=== PATIENT | female | born 1995 | race Caucasian/White ===

== ENCOUNTER 2024-09-27 22:50 | Emergency (ER) | payer SELFPAY ==
[2024-09-27 23:19] VITALS: BP 122/74; PULSE 87; RESP 18; TEMP 37.1; O2SAT 99; BMI 35.5
[2024-09-28 00:07] LABS: Influenza A - CEPHEID Flu A NEGATIVE (NEGATIVE); Influenza B - CEPHEID Flu B NEGATIVE (NEGATIVE); Respiratory Syncytial Virus Negative (Negative)
[2024-09-28 00:12] LABS: COVID-19 CEPHEID 4-PLEX PCR Negative (Negative)
[2024-09-28 00:44] VITALS: BP 114/68; PULSE 75; O2SAT 99
--- NOTE | 2024-09-28 00:49 | PC.NURSE ---
Pt states that the most diarrhea he has had is 4 times in one hour.
[2024-09-28 01:00] VITALS: BP 114/72; PULSE 71; O2SAT 99
--- NOTE | 2024-09-28 01:18 | ED_ITS ---
HPI - Nausea/Vomiting/Diarrhea General Chief complaint: Nausea/Vomiting/Diarrhea Stated complaint: 6wks Preg, Vomiting, Diarrhea Time Seen by Provider: 09/28/24 00:48 Source: patient Mode of arrival: Ambulatory History of Present Illness HPI Narrative: 29yoF at 6wks gestational age presents with 4 days of nausea, vomiting, watery diarrhea. States she is followed by OBGYN and has already esablished an IUP. She states she is here to have her stool checked for harmful bacteria that can be causing her symptoms. Reports belching after eating and upper abdominal pain that she describes as gassy Related Data Allergies Allergy/AdvReac Type Severity Reaction Status Date / Time No Known Drug Allergies Allergy Verified 09/27/24 23:19 Patient History Social History Smoking Status: Never smoker Smoking Status: Never smoker Exam Initial Vital Signs Initial Vital Signs: Vital Signs Temperature 98.7 F 09/27/24 23:19 Pulse Rate 87 09/27/24 23:19 Respiratory Rate 18 09/27/24 23:19 Blood Pressure 122/74 09/27/24 23:19 Pulse Oximetry 99 09/27/24 23:19 Oxygen Delivery Method Room Air 09/27/24 23:19 Const: Awake, alert, no acute distress, nontoxic appearing Cardiac: regular rate, regular rhythm RESP: unlabored, conversational without dyspnea GI: Soft, nontender, nondistended, no rebound, no guarding Skin: Warm, Dry, intact, no rashes Neuro: AO x3, CN II-XII grossly intact, moves all extremities Course Orders Ordered: ED Orders 09/27/24 23:25 Covid-19 + FLU A/B + RSV - PCR Stat Discontinued Medications Sodium Chloride (Normal Saline 0.9%) 1,000 mls @ 1,000 mls/hr IV BOLUS ONE Stop: 09/28/24 02:12 Last Admin: 09/28/24 01:29 Dose: Not Given Documented By: Ondansetron HCl (Ondansetron 4 Mg/2 Ml Inj) 4 mg IV NOW PRN PRN Reason: Nausea And Vomiting Ondansetron HCl (Ondansetron 4 Mg Odt) 4 mg SL NOW PRN PRN Reason: Nausea And Vomiting Last Admin: 02/01/25 01:20 Dose: 4 mg Documented By: Ondansetron HCl (Ondansetron 4 Mg/2 Ml Inj) 4 mg IV NOW ONE Stop: 09/28/24 01:14 Last Admin: 09/28/24 01:28 Dose: Not Given Documented By: Vital Signs Vital signs: Vital Signs - 8 hr 09/27/24 23:19 09/28/24 00:44 09/28/24 00:44 Temperature 98.7 F Pulse Rate 87 75 Respiratory Rate 18 Blood Pressure 122/74 114/68 Pulse Oximetry 99 99 Oxygen Delivery Method Room Air Room Air 09/28/24 01:00 09/28/24 01:00 Temperature Pulse Rate 71 Respiratory Rate Blood Pressure 114/72 Pulse Oximetry 99 Oxygen Delivery Method Room Air MDM - Nausea/Vomiting/Diarrhea Differential Diagnosis Differential diagnosis: Likely traveler's diarrhea, food poisoning and gastroenteritis Lab Data Labs: Lab Results 09/27/24 Range/Units 23:25 SARS-CoV-2 (PCR) Negative (Negative) Influenza A (RT-PCR) Flu a negative (NEGATIVE) Influenza B (RT-PCR) Flu b negative (NEGATIVE) RSV (PCR) Negative (Negative) Urine Dip Bedside Urine Glucose Negative Bedside Urine Bilirubin - Negative Bedside Urine Ketone - Negative Urine Specific [place] 1.015 Bedside Urine Occult Blood - Negative Bedside Urine pH 7.0 Bedside Urine Protein - Negative Bedside Urine Urobilinogen - Negative Bedside Urine Nitrite - Negative Bedside Urine Leukocytes - Negative Esterase MDM Narrative Medical decision making narrative: 4 days of symptoms. Requesting that we test her stool for harmful bacteria. Patient denies recent contaminated water exposure, new or strange food exposure. Patient has soft, benign abdominal exam. Nonbloody diarrhea. Patient advised that majority of patient's symptoms are caused by viral pathogens. In addition, there is a norovirus outbreak in [place], where the patient resides. Norovirus would be treated conservatively with symptom control and increasing fluids. Patient states that she already has Zofran at her pharmacy and she does not need a refill. Discharge Plan Departure Patient Disposition: Home Clinical Impression: Gastroenteritis Instructions: DI for Vomiting -- Adult Activity Restrictions/Additional Instructions: Your stool sample is pending. Use the nausea medications as prescribed. You may also use [id number] medications such as simethicone for gas pains. Stand Alone Forms: Patient Portal/API/Survey
[2024-09-28] MEDS: ONDANSETRON 4 MG ODT SL (01:20)
== END 2024-09-28 01:30 | disposition home or self-care (01) ==
PROVIDERS: Emergency Provider Emergency Medicine
DX: O26.891 Other specified pregnancy related conditions, first trimester (principal); K52.9 Noninfective gastroenteritis and colitis, unspecified; Z3A.01 Less than 8 weeks gestation of pregnancy
CPT/HCPCS: 0241U; 81003; 99283

== ENCOUNTER 2024-10-12 16:35 | Emergency (ER) | payer OTHER, SELFPAY ==
[2024-10-12 16:37] VITALS: BP 141/77; PULSE 71; RESP 14; TEMP 36.7; O2SAT 99; BMI 35.1
[2024-10-12 16:57] LABS: Add Manual Diff / Slide Review NO; Basophils Absolute Auto 100 /uL (0-100); Basophils Percent Auto 0.4 % (0-2); Eosinophils Absolute Auto 200 /uL (0-450); Eosinophils Percent Auto 1.8 % (2-4); Hematocrit 40.3 % (36-46); Hemoglobin 13.6 g/dL (12.0-16.0); Lymphocytes Absolute Auto 1600 /uL (1100-4500); Lymphocytes Percent Auto 13.6 % (25-40); Mean Corpuscular HGB Conc 33.8 % (30-36); Mean Corpuscular Hemoglobin 28.8 PG (26-34); Mean Corpuscular Volume 85.1 fL (80-100); Monocytes Absolute Auto 800 /uL (0-900); Monocytes Percent Auto 6.6 % (3-14); Neutrophils Absolute Auto 9000 /uL (1500-7000); Neutrophils Percent Auto 77.6 % (50-75); Platelet Count 307 X10^3/uL (150-400); Red Blood Cell Count 4.73 X10^6/uL (4.0-5.2); Red Cell Distribution Width 13.5 % (11.6-14.8); White Blood Cell Count 11.7 X10^3/uL (4.5-11.0)
--- NOTE | 2024-10-12 16:58 | ED_ITS ---
HPI - Abdominal Pain General Chief Complaint: Abdominal Pain Stated Complaint: yellow nasal discharge, px upper rt quad pt Time Seen by Provider: 10/12/24 16:48 Source: patient Mode of arrival: Ambulatory History of Present Illness HPI narrative: Patient is a 29-year-old female 3 presenting to day with right upper quadrant pain. She is currently about 8 weeks .today with right upper quadrant pain. Reports that she woke up this morning feeling pain underneath her ribs. She also has a yellow productive cough having some nasal congestion. No significant fever. She has nausea but has been nauseated with . She denies any sort of vaginal bleeding she was followed by [facility]. Denies any back pain or fever Related Data Allergies Allergy/AdvReac Type Severity Reaction Status Date / Time No Known Drug Allergies Allergy Verified 10/12/24 16:45 Patient History Social History Smoking Status: Never smoker Smoking Status: Never smoker Exam Initial Vital Signs Initial Vital Signs: Vital Signs Temperature 98.1 F 10/12/24 16:37 Pulse Rate 71 10/12/24 16:37 Respiratory Rate 14 10/12/24 16:37 Blood Pressure 141/77 H 10/12/24 16:37 Pulse Oximetry 99 10/12/24 16:37 Oxygen Delivery Method Room Air 10/12/24 16:37 GENERAL: Alert pleasant well-appearing 29-year-old female and in no acute distress. HEENT: Head atraumatic,EOMI, pupils reactive, face symmetric, moist mucous membranes CARDIOVASCULAR: Regular rate and rhythm without murmurs, rubs or gallops. RESPIRATORY: Breath sounds equal bilaterally, no wheezes rales or rhonchi. ABDOMEN: Soft, mild tenderness in right upper quadrant no guarding or rebound : No CVA tenderness EXTREMITIES: Normal range of motion, no clubbing or edema. Neurovascularly intact NEUROLOGICAL: Alert and oriented x4.Normal gait and speech. SKIN: Warm, dry, no laceration, no petechiae, no rashes or lesions. Course Orders Ordered: Discontinued Medications Sodium Chloride (Normal Saline 0.9%) 1,000 mls @ 1,000 mls/hr IV BOLUS ONE Stop: 10/12/24 18:01 Last Infusion: 10/12/24 18:14 Dose: Infused Documented By: Admin: 10/12/24 17:15 Dose: 1,000 mls/hr Documented By: SIMONE Acetaminophen (Ofirmev) 1,000 mg in 100 mls @ 400 mls/hr IV NOW ONE Stop: 10/12/24 17:16 Last Infusion: 10/12/24 17:47 Dose: Infused Documented By: Admin: 10/12/24 17:15 Dose: 400 mls/hr Documented By: SIMONE Vital Signs Vital signs: Vital Signs - 8 hr 10/12/24 16:37 Temperature 98.1 F Pulse Rate 71 Respiratory Rate 14 Blood Pressure 141/77 H Pulse Oximetry 99 Oxygen Delivery Method Room Air MDM - Abdominal Pain Lab Data 10/12/24 16:51 10/12/24 16:51 Labs: Lab Results 10/12/24 10/12/24 Range/Units 16:45 16:51 WBC 11.7 H (4.5-11.0) X10^3/uL RBC 4.73 (4.0-5.2) X10^6/uL Hgb 13.6 (12.0-16.0) g/dL Hct 40.3 (36-46) % MCV 85.1 (80-100) fL MCH 28.8 (26-34) PG MCHC 33.8 (30-36) % RDW 13.5 (11.6-14.8) % Plt Count 307 (150-400) X10^3/uL Neut % (Auto) 77.6 H (50-75) % Lymph % (Auto) 13.6 L (25-40) % [place] % (Auto) 6.6 (3-14) % Eos % (Auto) 1.8 L (2-4) % Baso % (Auto) 0.4 (0-2) % Neut # (Auto) 9000 H (5758-9579) /uL Lymph # (Auto) 1600 (4736-1264) /uL [place] # (Auto) 800 (0-900) /uL Eos # (Auto) 200 (0-450) /uL Baso # (Auto) 100 (0-100) /uL Sodium 135 L (137-145) mmol/L Potassium 3.6 (3.4-5.1) mmol/L Chloride 105 (98-107) mmol/L Carbon Dioxide 21 L (22-32) mmol/L BUN 10 (7-17) mg/dL Creatinine 0.55 (0.52-1.04) mg/dL Estimated GFR > 60 (>60) mL/min BUN/Creatinine Ratio 18.2 (6-22) Glucose 108 H (70-100) mg/dL Calcium 9.3 (8.4-10.2) mg/dL Total Bilirubin 0.2 (0.2-1.3) mg/dL AST 27 (14-36) IU/L ALT 35 H (<35) IU/L Alkaline Phosphatase 53 (38-126) U/L Total Protein 7.3 (6.3-8.2) g/dL Albumin 4.5 (3.5-5.0) g/dL Globulin 2.8 (1.7-4.1) g/dL Albumin/Globulin Ratio 1.6 (1.0-2.8) Lipase 52 (23-300) U/L SARS-CoV-2 (PCR) Negative (Negative) Influenza A (RT-PCR) Flu a negative (NEGATIVE) Influenza B (RT-PCR) Flu b negative (NEGATIVE) RSV (PCR) Negative (Negative) Point of care testing: Urine Dip Bedside Urine Glucose Negative Bedside Urine Bilirubin - Negative Bedside Urine Ketone +/- 5 Urine Specific [place] 1.025 Bedside Urine Occult Blood - Negative Bedside Urine pH 6.0 Bedside Urine Protein - Negative Bedside Urine Urobilinogen - Negative Bedside Urine Nitrite - Negative Bedside Urine Leukocytes - Negative Esterase Imaging Data Chest x-ray: Radiologist's Impression: PROCEDURE: XR CHEST 1V INDICATIONS: right upper pain and cough TECHNIQUE: One view of the chest was acquired. COMPARISON: [facility], , XR CHEST 2 VIEWS, 06/10/2015, 17:18. FINDINGS: Surgical changes and devices: None. Lungs and pleura: Lungs are clear. No pleural effusions or pneumothorax. Mediastinum: Mediastinal contours appear normal. Heart size is normal. Bones and chest wall: No suspicious bony lesions. Overlying soft tissues appear unremarkable. IMPRESSION: No acute cardiopulmonary abnormality is seen. Dictated by: Michael Cantu M.D. on 10/12/2024 at 16:41 Approved by: Michael Cantu M.D. on 10/12/2024 at 16:42 US - abdomen: Radiologist's Impression: PROCEDURE: US ABDOMEN LIMITED INDICATIONS: ruq TECHNIQUE: Real-time focused scanning was performed of the abdomen, with image documentation. COMPARISON: [facility], , US OB <= 14 WEEKS FETUS, 10/12/2024, 17:37. [facility], CR, XR CHEST 1V, 10/12/2024, 17:03. FINDINGS: The liver is normal in size and demonstrates no suspicious lesions. The patient is not NPO for this study and the gallbladder is contracted, which limits evaluation. No findings of gallstones or sludge are seen. The gallbladder wall is not thickened, measuring 3 mm or less. No specific pericholecystic fluid is seen. The sonographic Godinez sign is negative. There is no biliary dilatation, the common bile duct measures 3 mm. No significant pancreatic abnormality is seen on these images. IMPRESSION: Limited evaluation of the gallbladder, without findings of cholecystitis. Note: Concordant preliminary findings given by the preparation plant repairer upon the completion of the examination to ER staff. Dictated by: Michael Cantu M.D. on 10/12/2024 at 16:57 Approved by: Michael Cantu M.D. on 10/12/2024 at 16:58 US - NEEDLE CONTROL CHENILLER: Radiologist's Impression: PROCEDURE: US OB <= 14 WEEKS FETUS INDICATIONS: OUTSIDE/PRIOR DATING DATA: Last menstrual period (LMP): Unknown. LMP-based estimated date of delivery (SHANTHI): Not applicable. First dating scan (date and location): 10/12/2024 Ultrasound estimated dated delivery: 05/20/2025 TECHNIQUE: Real-time scanning was performed of the fetus and maternal pelvic organs, with image documentation. COMPARISON: [facility], US, US ABDOMEN LIMITED, 10/12/2024, 17:29. [facility], CR, XR CHEST 1V, 10/12/2024, 17:03. FINDINGS: Embryo: A single live intrauterine is seen. The measured heart rate is 173 beats per minute. The crown-rump length measures 2 cm, corresponding to an estimated gestational age of 8 weeks 4 days. It is too early for detailed anatomic assessment. By visual inspection, the amount of amniotic fluid is within normal limits. No significant findings of subchorionic/perigestational hemorrhage are seen. Maternal organs: No significant abnormality is seen. The cervical length is 4.7 cm. IMPRESSION: A single live intrauterine is seen. Based upon these images, the estimated gestational age is 8 weeks 4 days, with an ultrasound estimated date of delivery of 05/20/2025. We strive to produce accurate, complete, and clear reports of imaging services. To assist us in improving patient care, this report was composed using standard report templates and voice recognition software. Therefore, it may contain abnormal punctuation, insertions and/or omissions. Occasional wrong-word or sound-alike substitutions may occur. Though we review the report and make efforts to correct it, we do recommend that the report be read carefully in proper context to recognize any text inaccuracies. Dictated by: Michael Cantu M.D. on 10/12/2024 at 17:04 MDM Narrative Medical decision making narrative: Patient is a 29-year-old female presenting to day 8 weeks with some right upper quadrant and chest pain. She does have some upper respiratory like symptoms and a cough but lung sounds are clear no crackles. Some slight right upper quadrant pain. Blood work has been reviewed Mild leukocytosis WBCs 11.7 CMP no significant abnormalities carbon dioxide 21 creatinine 0.5 Bilirubin 0.2 AST 27 ALT 35 lipase 52 Viral panel negative Urine negative for leukocytes and nitrates Imaging reviewed Chest x-ray no acute cardiopulmonary process Ultrasound limited abdomen no evidence of cholelithiasis or cholecystitis Ultrasound OB shows an IUP 8 weeks Patient is feeling better unclear what is causing her right-sided pain. No evidence of pneumonia viral panel is negative. She would some mild leukocytosis which is normal with . Overall does not appear septic. She does have some nasal congestion I suspect she was some sort of viral illness. No evidence of UTI. At this time supportive care only Discharge Plan Departure Patient Disposition: Home Clinical Impression: Abdominal pain Instructions: DI for Abdominal Pain-Adult Activity Restrictions/Additional Instructions: *You have been diagnosed with abdominal pain *What to do: No evidence of pneumonia no need for antibiotics blood work is overall reassuring *Continue to take medications as directed Tylenol 1000 mg every 6 hours for [id number] pain *Follow up with your primary care provider in 2-3 days or call [phone] *Return to ER if you should have increasing pain nausea vomiting or any new, worsening or concerning symptoms Stand Alone Forms: Patient Portal/API/Survey
--- NOTE | 2024-10-12 17:02 | DI.US.S_ITS ---
PROCEDURE: US ABDOMEN LIMITED INDICATIONS: ruq TECHNIQUE: Real-time focused scanning was performed of the abdomen, with image documentation. COMPARISON: [facility], US, US OB <= 14 WEEKS FETUS, 10/12/2024, 17:37. [facility], CR, XR CHEST 1V, 10/12/2024, 17:03. FINDINGS: The liver is normal in size and demonstrates no suspicious lesions. The patient is not NPO for this study and the gallbladder is contracted, which limits evaluation. No findings of gallstones or sludge are seen. The gallbladder wall is not thickened, measuring 3 mm or less. No specific pericholecystic fluid is seen. The sonographic Godinez sign is negative. There is no biliary dilatation, the common bile duct measures 3 mm. No significant pancreatic abnormality is seen on these images. IMPRESSION: Limited evaluation of the gallbladder, without findings of cholecystitis. Note: Concordant preliminary findings given by the crib clerk upon the completion of the examination to ER staff. Dictated by: Michael Cantu M.D. on 10/12/2024 at 16:57 Approved by: Michael Cantu M.D. on 10/12/2024 at 16:58
--- NOTE | 2024-10-12 17:02 | DI.RAD.S_ITS ---
PROCEDURE: XR CHEST 1V INDICATIONS: right upper pain and cough TECHNIQUE: One view of the chest was acquired. COMPARISON: [facility], CR, XR CHEST 2 VIEWS, 06/10/2015, 17:18. FINDINGS: Surgical changes and devices: None. Lungs and pleura: Lungs are clear. No pleural effusions or pneumothorax. Mediastinum: Mediastinal contours appear normal. Heart size is normal. Bones and chest wall: No suspicious bony lesions. Overlying soft tissues appear unremarkable. IMPRESSION: No acute cardiopulmonary abnormality is seen. Dictated by: Michael Cantu M.D. on 10/12/2024 at 16:41 Approved by: Michael Cantu M.D. on 10/12/2024 at 16:42
[2024-10-12 17:09] LABS: Alanine Aminotransferase 35 IU/L (<35); Albumin 4.5 g/dL (3.5-5.0); Albumin Globulin Ratio 1.6 (1.0-2.8); Alkaline Phosphatase 53 U/L (38-126); Aspartate Aminotransferase 27 IU/L (14-36); BUN Creatinine Ratio 18.2 (6-22); Bilirubin Total 0.2 mg/dL (0.2-1.3); Blood Urea Nitrogen 10 mg/dL (7-17); Calcium 9.3 mg/dL (8.4-10.2); Carbon Dioxide 21 mmol/L (22-32); Chloride 105 mmol/L (98-107); Estimated Glomerular Filt Rate > 60 mL/min (>60); Globulin 2.8 g/dL (1.7-4.1); Glucose 108 mg/dL (70-100); HEMOLYSIS < 15 (0-50); Lipase 52 U/L (23-300); Potassium 3.6 mmol/L (3.4-5.1); Sodium 135 mmol/L (137-145); Total Protein 7.3 g/dL (6.3-8.2)
[2024-10-12] MEDS: SODIUM CHLORIDE 0.9% 1,000 ML 1000 ML IV (17:15)
[2024-10-12] MEDS: ACETAMINOPHEN IV 1,000 MG/100 ML VIAL 400 MG IV (17:15)
--- NOTE | 2024-10-12 17:26 | DI.US.S_ITS ---
PROCEDURE: US OB <= 14 WEEKS FETUS INDICATIONS: OUTSIDE/PRIOR DATING DATA: Last menstrual period (LMP): Unknown. LMP-based estimated date of delivery (SHANTHI): Not applicable. First dating scan (date and location): 10/12/2024 Ultrasound estimated dated delivery: 05/20/2025 TECHNIQUE: Real-time scanning was performed of the fetus and maternal pelvic organs, with image documentation. COMPARISON: [facility], US, US ABDOMEN LIMITED, 10/12/2024, 17:29. [facility], CR, XR CHEST 1V, 10/12/2024, 17:03. FINDINGS: Embryo: A single live intrauterine is seen. The measured heart rate is 173 beats per minute. The crown-rump length measures 2 cm, corresponding to an estimated gestational age of 8 weeks 4 days. It is too early for detailed anatomic assessment. By visual inspection, the amount of amniotic fluid is within normal limits. No significant findings of subchorionic/perigestational hemorrhage are seen. Maternal organs: No significant abnormality is seen. The cervical length is 4.7 cm. IMPRESSION: A single live intrauterine is seen. Based upon these images, the estimated gestational age is 8 weeks 4 days, with an ultrasound estimated date of delivery of 05/20/2025. We strive to produce accurate, complete, and clear reports of imaging services. To assist us in improving patient care, this report was composed using standard report templates and voice recognition software. Therefore, it may contain abnormal punctuation, insertions and/or omissions. Occasional wrong-word or sound-alike substitutions may occur. Though we review the report and make efforts to correct it, we do recommend that the report be read carefully in proper context to recognize any text inaccuracies. Dictated by: Michael Cantu M.D. on 10/12/2024 at 17:04 Approved by: Michael Cantu M.D. on 10/12/2024 at 17:06
[2024-10-12 17:34] LABS: Influenza A - CEPHEID Flu A NEGATIVE (NEGATIVE); Influenza B - CEPHEID Flu B NEGATIVE (NEGATIVE); Respiratory Syncytial Virus Negative (Negative)
[2024-10-12 17:36] LABS: COVID-19 CEPHEID 4-PLEX PCR Negative (Negative)
[2024-10-12 18:18] VITALS: BP 122/79; PULSE 70; O2SAT 100
== END 2024-10-12 18:16 | disposition home or self-care (01) ==
PROVIDERS: Emergency Provider Emergency Medicine
DX: O26.891 Other specified pregnancy related conditions, first trimester (principal); R10.11 Right upper quadrant pain; Z3A.08 8 weeks gestation of pregnancy
CPT/HCPCS: 0241U; 36415; 71045; 76705; 76801; 80053; 81003; 83690; 85025; 96365; 99284; J0131

== ENCOUNTER 2024-11-10 20:37 | Emergency (ER) | payer OTHER, SELFPAY ==
[2024-11-10 20:42] VITALS: BP 127/79; PULSE 121; RESP 20; TEMP 37.6; O2SAT 96; BMI 32.0
--- NOTE | 2024-11-10 21:34 | PC.NURSE ---
Pt reports taking 2 doses of her partner's left over amoxicillin due to thinking she has a potential sinus infection. 875mg each dose.
--- NOTE | 2024-11-10 21:43 | ED.URI ---
HPI - URI/Sore Throat General Chief Complaint: Upper Respiratory Symptoms Stated Complaint: cough, AVILES, facial pain, Fever 102F Time Seen by Provider: 11/10/24 21:25 Source: patient Mode of arrival: Ambulatory History of Present Illness HPI Narrative: Patient is a 29-year-old female not vaccinated presenting today with fever upper respiratory like symptoms headache for the last 4 or 5 days. He was son who has similar symptoms. She was previously here in September with issues at 8 weeks but is no longer . She took Motrin 400 mg prior to arrival. Related Data Allergies Allergy/AdvReac Type Severity Reaction Status Date / Time No Known Drug Allergies Allergy Verified 10/12/24 16:45 Patient History Social History Smoking Status: Never smoker Smoking Status: Never smoker Exam Initial Vital Signs Initial Vital Signs: Vital Signs Temperature 99.7 F H 11/10/24 20:42 Pulse Rate 121 H 11/10/24 20:42 Respiratory Rate 20 11/10/24 20:42 Blood Pressure 127/79 11/10/24 20:42 Pulse Oximetry 96 11/10/24 20:42 Oxygen Delivery Method Room Air 11/10/24 20:42 GENERAL: Alert 29-year-old female and in no acute distress. HEENT: Head atraumatic,EOMI, pupils reactive, face symmetric, moist mucous membranes EARS: Tympanic membranes visualized, no erythema or bulging, no hemotympanum CARDIOVASCULAR: Regular rate and rhythm without murmurs, rubs or gallops. RESPIRATORY: Breath sounds equal bilaterally, no wheezes rales or rhonchi. ABDOMEN: Soft, nontender. Normoactive bowel sounds all 4 quadrants. No guarding or rebound. EXTREMITIES: Normal range of motion, no clubbing or edema. Neurovascularly intact NEUROLOGICAL: Alert and oriented x4.Normal gait and speech. Cranial nerves II through XII grossly intact. SKIN: Warm, dry, no laceration, no petechiae, no rashes or lesions. Course Orders Ordered: ED Orders 11/10/24 20:55 Covid-19 + FLU A/B + RSV - PCR Stat Discontinued Medications Ibuprofen (Ibuprofen 400 Mg Tablet) 400 mg PO NOW ONE Stop: 11/10/24 22:02 Last Admin: 11/10/24 22:08 Dose: Not Given Documented By: SB Vital Signs Vital signs: Vital Signs - 8 hr 11/10/24 20:42 11/10/24 22:08 11/10/24 23:02 Temperature 99.7 F H 98.8 F 98.2 F Pulse Rate 121 H 104 H Respiratory Rate 20 16 Blood Pressure 127/79 120/76 Pulse Oximetry 96 95 Oxygen Delivery Method Room Air Room Air MDM - URI/Sore Throat Lab Data Labs: Lab Results 11/10/24 Range/Units 20:55 SARS-CoV-2 (PCR) Negative (Negative) Influenza A (RT-PCR) Flu a positive H (NEGATIVE) Influenza B (RT-PCR) Flu b negative (NEGATIVE) RSV (PCR) Negative (Negative) MDM Narrative Medical decision making narrative: Patient 29-year-old female with upper respiratory like symptoms for last 4-5 days. She was mildly tachycardic no significant respiratory distress. She took 400 of Motrin prior to arrival can take another 400 Motrin now. Viral panel positive for influenza A. At this time supportive care only. Discharge Plan Departure Patient Disposition: Home Clinical Impression: Influenza A Instructions: DI for Influenza -- Adult Activity Restrictions/Additional Instructions: *You have been diagnosed with influenza a *What to do: At this time drink plenty of fluids rest and hydrate *Continue to take medications as directed Tylenol 1000 mg every 6 hours for vdww-[id number] pain or fever Motrin 600 mg every 6 hours for soah-ga-nwjxytpz pain or fever *Follow up with your primary care provider in 2-3 days or call [phone] *Return to ER if you should have increasing shortness of breath worsening cough not tolerating fluids or any new, worsening or concerning symptoms Stand Alone Forms: Patient Portal/API/Survey
[2024-11-10 21:57] LABS: Influenza A - CEPHEID Flu A POSITIVE (NEGATIVE); Influenza B - CEPHEID Flu B NEGATIVE (NEGATIVE); Respiratory Syncytial Virus Negative (Negative)
[2024-11-10 22:08] VITALS: TEMP 37.1
[2024-11-10 22:08] LABS: COVID-19 CEPHEID 4-PLEX PCR Negative (Negative)
[2024-11-10 23:02] VITALS: BP 120/76; PULSE 104; RESP 16; TEMP 36.8; O2SAT 95
== END 2024-11-10 22:58 | disposition home or self-care (01) ==
PROVIDERS: Emergency Provider Emergency Medicine
DX: J10.1 Influenza due to other identified influenza virus with other respiratory manifestations (principal)
CPT/HCPCS: 87635; 87400 ×2; 87420; 0241U; 99282

== ENCOUNTER 2025-03-17 21:03 | Emergency (ER) | payer OTHER, SELFPAY ==
[2025-03-17 21:35] VITALS: BP 127/78; PULSE 65; RESP 18; TEMP 36.9; O2SAT 97; BMI 33.0
[2025-03-17 21:54] LABS: Add Manual Diff / Slide Review NO; Hematocrit 42.0 % (36-46); Hemoglobin 14.4 g/dL (12.0-16.0); Lymphocytes Absolute Auto 1900 /uL (1100-4500); Mean Corpuscular HGB Conc 34.3 % (30-36); Mean Corpuscular Hemoglobin 29.4 PG (26-34); Mean Corpuscular Volume 85.7 fL (80-100); Platelet Count 262 X10^3/uL (150-400)
[2025-03-17 22:06] LABS: Alanine Aminotransferase 23 IU/L (<35); Albumin 4.6 g/dL (3.5-5.0); Albumin Globulin Ratio 1.6 (1.0-2.8); Alkaline Phosphatase 48 U/L (38-126); Blood Urea Nitrogen 18 mg/dL (7-17); Calcium 9.5 mg/dL (8.4-10.2); Carbon Dioxide 28 mmol/L (22-32); Chloride 103 mmol/L (98-107); Estimated Glomerular Filt Rate > 60 mL/min (>60); Globulin 2.8 g/dL (1.7-4.1); Glucose 82 mg/dL (70-99); HEMOLYSIS < 15 (0-50); Lipase 57 U/L (23-300); Potassium 3.8 mmol/L (3.4-5.1); Sodium 138 mmol/L (137-145); Total Protein 7.4 g/dL (6.3-8.2)
== END 2025-03-17 22:40 | disposition left against medical advice (07) ==
PROVIDERS: Emergency Provider Student in an Organized Health Care Education/Training Program
DX: R10.9 Unspecified abdominal pain (principal)
CPT/HCPCS: 80053; 81003; 81025; 83690; 85025; 99282